=== PATIENT | male | born 1970 | race Caucasian/White ===

== ENCOUNTER 2016-08-12 15:29 | Outpatient (CLI) | payer BC ==
[2016-08-12 16:01] LABS: #Basophils 0.2 thou/uL (0.0-0.2); #Eosinphils 0.2 thou/uL (0.0-0.7); #Lymphocytes 2.3 thou/uL (1.20-3.40); #Monocytes 1.1 thou/uL (0.11-0.59); #Neutrophils 10.6 thou/uL (1.40-6.50); %Basophils 1.3 % (0.0-1.0); %Eosinophils 1.4 % (0.0-10.0); %Lymphocytes 16.1 % (21.0-51.0); %Monocytes 7.8 % (0.0-10.0); %Neutrophils 73.4 % (42.0-75.0); Hemoglobin 16.4 g/dL (14.0-18.0); MDiff Complete? YES; Macrocytosis SLIGHT = 6-15 cells (100X) (0-5/hpf); Mean Corpuscular HGB CONC 35.6 g/dL (32.0-36.0); Mean Corpuscular Hemoglobin 35.3 pg (27.0-31.0); Mean Corpuscular Volume 99.2 fl (80.0-94.0); Mean Platelet Volume 8.6 fL (7.4-10.4); Platelet Count 232 thou/uL (130-400); RBC Distribution Width 11.5 % (11.5-14.5); Red Blood Cell (RBC) Count 4.65 mill/uL (4.70-6.10); White Blood Cell (WBC) Count 14.4 thou/uL (4.8-10.8)
[2016-08-12 16:35] LABS: ALT (SGPT) 21 U/L (8-55); AST (SGOT) 24 U/L (5-34); Alkaline Phosphatase 37 U/L (40-150); Anion Gap 17 mmol/L (10-20); BUN (Urea Nitrogen) 8 mg/dL (8.9-20.6); Bilirubin, Total 0.8 mg/dL (0.2-1.2); Calc. Creatinine Clearance 0 mL/min (70-130); Calcium 9.1 mg/dL (7.8-10.44); Carbon Dioxide 24 mmol/L (22-29); Cardiac Risk 4.8 (Less than 4.5); Chloride 103 mmol/L (98-107); Cholesterol 134 mg/dl (< 200 Desired); Estimated GFR-MDRD 77; Globulin 2.9 g/dL (2.4-3.5); Glucose 108 mg/dL (70-105); HDL Cholesterol 28 mg/dL (>60 Neg Risk); Potassium 4.1 mmol/L (3.5-5.1); Protein, Total 6.9 g/dL (6.0-8.3); Sodium 140 mmol/L (136-145); Triglycerides 650 mg/dL (Less than 150); Uric Acid 7.5 mg/dL (3.5-7.2)
[2016-08-13 17:32] LABS: HIV (1/2) Antibody/Antigen Non-Reactive (NonReactive); HIV 1/2 INDEX 0.08 S/CO (<1.00)
[2016-08-13 17:45] LABS: Folate (Folic Acid) 14.6 ng/mL (7.0-31.4)
== END 2016-08-12 15:30 | disposition home or self-care (01) ==
LOC: MADLABBHPM 15:29
PROVIDERS: ATTEND Family Medicine
DX: Z00.00 Encounter for general adult medical examination without abnormal findings (principal); E78.1 Pure hyperglyceridemia; M79.671 Pain in right foot; R26.81 Unsteadiness on feet
CPT/HCPCS: 36415; 80053; 80061; 82607; 82746; 84550; 85025; 86592; 87389

== ENCOUNTER 2018-05-18 15:12 | Outpatient (CLI) | payer BC ==
--- NOTE | 2018-05-18 17:03 | CT ---
CT HEAD NONCONTRAST: 05/18/18 HISTORY: Dizziness. Recent surgery. COMPARISON: 03/17/18. FINDINGS: There is no evidence of acute intracranial hemorrhage or infarct. Ventricular dilatation is slightly less pronounced than on the prior study, with moderate to severe hydrocephalus remaining. Postoperati ve changes right frontal lobe with encephalomalacia in the area of prior shunt. Septum pellucidum is midline. IMPRESSION: Postoperative changes. No shunt remains. Moderate to severe hydrocephalus, slightly improved from the prior study. No acute intracranial abnormalities are demonstrated. POS: [place]
== END 2018-05-18 15:13 | disposition home or self-care (01) ==
LOC: MADRAD 15:12
PROVIDERS: ATTEND Neurological Surgery
DX: Q04.6 Congenital cerebral cysts (principal); G91.9 Hydrocephalus, unspecified; Z98.890 Other specified postprocedural states
CPT/HCPCS: 70450